=== PATIENT | female | born 1955 | race Caucasian/White ===

== ENCOUNTER 2017-10-28 17:09 | Emergency (ER) | payer OTHER ==
[~2017-10-28] VITALS: Ht 167.6 cm; Wt 102.5 kg
[2017-10-28 17:14] VITALS: BP 144/87; Ht 167.6 cm; Wt 102.5 kg
== END 2017-10-28 17:59 | disposition home or self-care (01) ==
LOC: ED 17:09
DX: S00.86XA Insect bite (nonvenomous) of other part of head, initial encounter (principal); L08.9 Local infection of the skin and subcutaneous tissue, unspecified; I10 Essential (primary) hypertension; Z88.5 Allergy status to narcotic agent; W57.XXXA Bitten or stung by nonvenomous insect and other nonvenomous arthropods, initial encounter; Y93.89 Activity, other specified; Y99.8 Other external cause status; Y92.89 Other specified places as the place of occurrence of the external cause

== ENCOUNTER 2017-10-29 17:39 | Emergency (ER) | payer OTHER ==
[~2017-10-29] VITALS: Ht 167.6 cm; Wt 103.0 kg
[2017-10-29 17:46] VITALS: Ht 167.6 cm; Wt 103.0 kg
[2017-10-29 18:30] VITALS: BP 158/77
== END 2017-10-29 18:30 | disposition home or self-care (01) ==
LOC: ED 17:39
DX: T63.301A Toxic effect of unspecified spider venom, accidental (unintentional), initial encounter (principal); L03.211 Cellulitis of face; I10 Essential (primary) hypertension; Z88.5 Allergy status to narcotic agent; Y92.89 Other specified places as the place of occurrence of the external cause
CPT/HCPCS: J0696; J1885

== ENCOUNTER 2018-01-19 16:38 | Emergency (ER) | payer OTHER ==
[~2018-01-19] VITALS: Ht 167.6 cm; Wt 104.4 kg
[2018-01-19 17:26] VITALS: Ht 167.6 cm; Wt 104.4 kg
[2018-01-19 19:12] VITALS: BP 140/64
== END 2018-01-19 19:12 | disposition home or self-care (01) ==
LOC: ED 16:38
DX: S66.812A Strain of other specified muscles, fascia and tendons at wrist and hand level, left hand, initial encounter (principal); I10 Essential (primary) hypertension; Z88.5 Allergy status to narcotic agent; X50.1XXA Overexertion from prolonged static or awkward postures, initial encounter; Y93.89 Activity, other specified; Y92.89 Other specified places as the place of occurrence of the external cause; Y99.8 Other external cause status
CPT/HCPCS: A4570

== ENCOUNTER 2018-05-17 14:35 | Emergency (ER) | payer OTHER ==
[~2018-05-17] VITALS: Ht 162.6 cm; Wt 102.5 kg
[2018-05-17 14:53] VITALS: BP 126/64; Ht 162.6 cm; Wt 102.5 kg
== END 2018-05-17 15:08 | disposition home or self-care (01) ==
LOC: ED 14:35
DX: T78.40XA Allergy, unspecified, initial encounter (principal); I10 Essential (primary) hypertension; Z88.5 Allergy status to narcotic agent; Z88.8 Allergy status to other drugs, medicaments and biological substances; X58.XXXA Exposure to other specified factors, initial encounter

== ENCOUNTER 2018-09-15 16:42 | Emergency (ER) | payer OTHER ==
[~2018-09-15] VITALS: Ht 167.6 cm; Wt 104.3 kg
[2018-09-15 16:54] VITALS: Ht 167.6 cm; Wt 104.3 kg
[2018-09-15 21:37] VITALS: BP 144/79
== END 2018-09-15 21:37 | disposition home or self-care (01) ==
LOC: ED 16:42
DX: S60.222A Contusion of left hand, initial encounter (principal); S60.221A Contusion of right hand, initial encounter; S80.02XA Contusion of left knee, initial encounter; S80.01XA Contusion of right knee, initial encounter; I10 Essential (primary) hypertension; Z88.8 Allergy status to other drugs, medicaments and biological substances; Z88.6 Allergy status to analgesic agent; W18.39XA Other fall on same level, initial encounter; Y93.89 Activity, other specified; Y92.89 Other specified places as the place of occurrence of the external cause; Y99.8 Other external cause status
CPT/HCPCS: J1885

== ENCOUNTER 2018-10-16 17:58 | Emergency (ER) | payer OTHER ==
[~2018-10-16] VITALS: Ht 167.6 cm; Wt 103.4 kg
[2018-10-16 18:02] VITALS: BP 139/65; Ht 167.6 cm; Wt 103.4 kg
== END 2018-10-16 19:11 | disposition home or self-care (01) ==
LOC: ED 17:58
DX: J18.1 Lobar pneumonia, unspecified organism (principal); I10 Essential (primary) hypertension; Z88.5 Allergy status to narcotic agent; Z88.8 Allergy status to other drugs, medicaments and biological substances
CPT/HCPCS: J0696; Q0092

== ENCOUNTER 2019-03-07 17:59 | Emergency (ER) | payer OTHER ==
[~2019-03-07] VITALS: Ht 167.6 cm; Wt 106.6 kg
[2019-03-07 19:38] VITALS: Ht 167.6 cm; Wt 106.6 kg
[2019-03-07 21:09] VITALS: BP 145/77
== END 2019-03-07 21:09 | disposition home or self-care (01) ==
LOC: ED 17:59
DX: S81.852A Open bite, left lower leg, initial encounter (principal); I10 Essential (primary) hypertension; Z88.8 Allergy status to other drugs, medicaments and biological substances; Z88.5 Allergy status to narcotic agent; W55.01XA Bitten by cat, initial encounter; Y93.89 Activity, other specified; Y92.89 Other specified places as the place of occurrence of the external cause; Y99.8 Other external cause status

== ENCOUNTER 2019-04-19 12:52 | Emergency (ER) | payer OTHER ==
[~2019-04-19] VITALS: Ht 167.6 cm; Wt 103.0 kg
[2019-04-19 12:55] VITALS: Ht 167.6 cm; Wt 103.0 kg
[2019-04-19 17:26] VITALS: BP 134/84
== END 2019-04-19 17:26 | disposition home or self-care (01) ==
LOC: ED 12:52
DX: S80.12XA Contusion of left lower leg, initial encounter (principal); L02.416 Cutaneous abscess of left lower limb; L03.116 Cellulitis of left lower limb; L08.9 Local infection of the skin and subcutaneous tissue, unspecified; I10 Essential (primary) hypertension; Z88.5 Allergy status to narcotic agent; Z88.8 Allergy status to other drugs, medicaments and biological substances; W50.1XXA Accidental kick by another person, initial encounter; Y93.89 Activity, other specified; Y92.89 Other specified places as the place of occurrence of the external cause; Y99.8 Other external cause status
CPT/HCPCS: 82962; 90715; J2001; Q0092

== ENCOUNTER 2019-04-30 11:14 | Emergency (ER) | payer OTHER ==
[~2019-04-30] VITALS: Ht 167.6 cm; Wt 101.2 kg
[2019-04-30 11:36] VITALS: Ht 167.6 cm; Wt 101.2 kg
[2019-04-30 13:20] VITALS: BP 110/50
== END 2019-04-30 13:20 | disposition home or self-care (01) ==
LOC: ED 11:14
DX: S80.812D Abrasion, left lower leg, subsequent encounter (principal); L03.116 Cellulitis of left lower limb; I10 Essential (primary) hypertension; Z88.5 Allergy status to narcotic agent; Z88.8 Allergy status to other drugs, medicaments and biological substances; X58.XXXD Exposure to other specified factors, subsequent encounter

== ENCOUNTER 2020-01-27 16:04 | Emergency (ER) | payer OTHER ==
[~2020-01-27] VITALS: Ht 167.6 cm; Wt 85.7 kg
[2020-01-27 16:15] VITALS: Ht 167.6 cm; Wt 85.7 kg
[2020-01-27 20:38] LABS: BASOPHIL % 0.3 % (0-2); PLATELET COUNT 152 x10^3mcL (130-400)
[2020-01-27 20:45] LABS: CALCIUM 8.9 mg/dL (8.5-10.1); CHLORIDE SERUM 102 mmol/L (98-107); CREATININE SERUM 0.9 mg/dL (0.6-1.0); GFR1 > 60 mL/min; GLUCOSE SERUM 118 mg/dL (74-106); POTASSIUM SERUM 3.8 mmol/L (3.5-5.1); SODIUM SERUM 136 mmol/L (136-145)
[2020-01-27 20:51] LABS: ALKALINE PHOSPHATASE 97 U/L (46-116); ALT/SGPT 87 U/L (14-59); AST/SGOT 122 U/L (15-37); BILIRUBIN TOTAL 1.34 mg/dL (0.20-1.00); TOTAL PROTEIN, SERUM 8.2 g/dL (6.4-8.2)
[2020-01-27 20:52] LABS: ALBUMIN 2.9 g/dL (3.4-5.0)
[2020-01-28 05:10] VITALS: BP 100/47
== END 2020-01-28 05:10 | disposition short-term general hospital (02) ==
LOC: ED 16:04
PROVIDERS: Student in an Organized Health Care Education/Training Program
DX: I21.4 Non-ST elevation (NSTEMI) myocardial infarction (principal); H40.212 Acute angle-closure glaucoma, left eye; I10 Essential (primary) hypertension; Z88.5 Allergy status to narcotic agent
CPT/HCPCS: J1120; J1885; J2405; Q0092